=== PATIENT | female | born 1990 | race Caucasian/White ===

== ENCOUNTER 2016-12-07 18:40 | Emergency (ER) | payer SELFPAY ==
[~2016-12-07] VITALS: Ht 132.1 cm; Wt 66.0 kg
[2016-12-07 18:42] VITALS: BP 130/63; PULSE 84; RESP 24; TEMP 98; O2SAT 99
== END 2016-12-07 20:30 | disposition left against medical advice (07) ==
LOC: NED 18:40
DX: R68.89 Other general symptoms and signs (principal); Z53.21 Procedure and treatment not carried out due to patient leaving prior to being seen by health care provider
CPT/HCPCS: 99281